=== PATIENT | male | born 1960 | race Caucasian/White ===

== ENCOUNTER → 2022-01-16 | Outpatient (CLI) | payer OTHER ==
[~2022-01-16] MED LIST: ACET325C7 PO; ALLO300T2 PO; AMIT25TA9 PO; ATEN-42 PO; ATOR40TA70 PO; BENA10TA74 PO; LISI20TA31 PO; NIFE-33 PO; OMEG1CAP28 PO; OMEP20CA14 PO; TAMS-11 PO
== END | disposition home or self-care (01) ==
LOC: LAB 10:29
PROVIDERS: ATTEND Surgery
DX: Z01.812 Encounter for preprocedural laboratory examination (principal); Z20.822 Contact with and (suspected) exposure to COVID-19
CPT/HCPCS: 87426; C9803

== ENCOUNTER → 2022-01-18 | Day surgery (SDC) | payer OTHER ==
[~2022-01-18] VITALS: Ht 162.6 cm; Wt 64.9 kg
[~2022-01-18] MED LIST changes: -ACET325C7 PO; -ALLO300T2 PO; -AMIT25TA9 PO; -ATEN-42 PO; -ATOR40TA70 PO; +BUPIVACAINE HCL/PF 0.5% (5MG/ML) 30ML ONE; +CEFAZOLIN SODIUM 1000MG/VIAL ONE; +DEXAMETHASONE 4MG/ML 1ML VIAL ONE; +GLYCOPYRROLATE 0.2 MG/ML 2ML VIAL ONE; +HYDROMORPHONE HCL/PF 2MG/ML CPJ ONE; +LACTATED RINGERS 1,000 ML IV SCH; -LISI20TA31 PO; -NIFE-33 PO; -OMEG1CAP28 PO; -OMEP20CA14 PO; +SKIN ADHESIVE 0.7 GM EA TOP ONE
== END | disposition home or self-care (01) ==
LOC: OR 06:56
PROVIDERS: ATTEND Surgery
DX: R22.31 Localized swelling, mass and lump, right upper limb (principal); E88.3 Tumor lysis syndrome; I10 Essential (primary) hypertension; N40.0 Benign prostatic hyperplasia without lower urinary tract symptoms; Z79.899 Other long term (current) drug therapy; Z98.890 Other specified postprocedural states
CPT/HCPCS: 23071; 88304; J0690; J1100; J1170; J3490